=== PATIENT | male | born 1950 | race Caucasian/White ===

== ENCOUNTER 2017-12-23 08:52 | Day surgery (SDC) | payer OTHER ==
[2017-11-07 10:14] VITALS: BMI 27.2
[~2017-12-23 08:52] MED LIST: LACTATED RINGERS 1,000 ML IV SCH
[2017-12-23 09:13] VITALS: TEMP 97.3
[2017-12-23] MEDS: CYCLOPENTOLATE 1% OPHTH SOLN 2 ML BTL OP ONE ×3 (09:15→09:34)
[2017-12-23] MEDS: FLURBIPROFEN 0.03% OPHTH DROPS 2.5 ML BTL OP ONE ×3 (09:18→09:37)
[2017-12-23] MEDS: PHENYLEPHRINE 10% OPHTH DROPS 5 ML BTL OP ONE ×3 (09:21→09:40)
[2017-12-23] MEDS ORDERED: PROPOFOL 10 MG/ML 20 ML VIAL IV ONE (09:54)
[2017-12-23] MEDS ORDERED: BALANCED SALT IRRIG SOLN COMB2 15 ML IRRIG.SOLN IRRIGATION ONE (10:04)
[2017-12-23] MEDS ORDERED: HYALURONATE SODIUM INTRAOCULAR 1 EACH SYRINGE (10MG/ML) INTRAOCULA ONE (10:05)
[2017-12-23] MEDS ORDERED: EPINEPHrine (PF) 0.5 ML in BALANCED SALT IRRIG SOLN COMB2 500 ML IRRIGATION ONE (10:06)
--- NOTE | 2017-12-23 10:15 | P.OP ---
Date of Procedure: 12/23/17 Procedure(s) Performed: PREOPERATIVE DIAGNOSIS: Cataract, left eye. POSTOPERATIVE DIAGNOSIS: Cataract, left eye. OPERATION: Phacoemulsification cataract, left eye. DESCRIPTION OF PROCEDURE: The patient was taken to the preoperative holding area. Intravenous Propofol was given so as to bring about adequate sedation. The following mixture was given for local anesthesia: 5 mL of 2% lidocaine, 5 mL of 0.75% Marcaine, and 1 mL of Wydase. Approximately 4 mL was injected in the retrobulbar space of the surgical eye. Additional 1 mL was then directed to the temporal area of the surgical eye. This was performed to allow adequate neurological block of the facial muscles. The patient was revived and then taken into the operative room. The patient was prepped and draped in the usual sterile manner for the operative eye. A lid speculum was put into position. The conjunctiva was resected back from the limbus in the 12 o'clock position. Bleeding was controlled with electrocautery. A #69 blade was then used and a half-thickness scleral incision approximately 1-mm posterior to the limbus was made on bare sclera. This was shelved in the clear cornea using a crescent knife. Next a 15-degree blade was used to make a stab incision at the 3 o' clock position at the corneolimbal interface. Keratome blade was then used and the superior wound was extended into the anterior chamber. Viscoelastic was injected into the anterior chamber and to maintain its form. Next, a cystotome was used and a continuous anterior capsulotomy was made without difficulty. Hydrodissection using a blunt cannula and BSS was performed. Phaco probe was then employed and a groove extending from 12 to 6 o'clock in the lens was created. A Anoop wand was used through the stab incision so as to perform a divide and conquer technique. Next an irrigation aspiration probe was utilized and any residual cortex was removed from the eye. Again, viscoelastic was injected into the anterior chamber. An Dada posterior chamber lens implant was placed in the cartridge and injected into the anterior chamber without difficulty. The SinFuturefleetey hook was utilized to spin the lens into position and this was again performed without any difficulty. The irrigation and aspiration probe was again employed and any residual viscoelastic was removed from the eye. Then BSS was injected into the limbal stab incision and the anterior chamber re-inflated. The conjunctiva was reapproximated using electrocautery. One drop of 0.25% Timoptic was placed over the corneal along with TobraDex ophthalmic ointment. Two sterile patches and a Brody eye shield were taped into position. The patient was transported to the recovery room in stable condition. Pathology: none sent Condition: stable Disposition: same day
[2017-12-23 10:24] VITALS: PULSE 54
[2017-12-23 10:40] VITALS: BP 152/83; RESP 18
[2017-12-23] MEDS ORDERED: BUPIVACAINE (PF) 0.75% 5 ML, HYALURONIDASE, HUMAN RECOMB 150 UNIT, LIDOCAINE 2% (PF) 10... MISCELLANE ONE ×3 (23:00)
[2017-12-23] MEDS ORDERED: GENTAMICIN/PREDNISOL AC OPHTH OINT 3.5GM OPHTHALMIC ONE (23:00)
[2017-12-23] MEDS ORDERED: TIMOLOL 0.5% OPHTH DROPS 5 ML BTL OP ONE (23:00)
== END 2017-12-23 10:47 | disposition home or self-care (01) ==
LOC: OR 08:52
PROVIDERS: ATTEND Ophthalmology
DX: H26.9 Unspecified cataract (principal); H40.059 Ocular hypertension, unspecified eye; I25.10 Atherosclerotic heart disease of native coronary artery without angina pectoris; I11.9 Hypertensive heart disease without heart failure; Z87.891 Personal history of nicotine dependence; Z95.1 Presence of aortocoronary bypass graft; Z95.5 Presence of coronary angioplasty implant and graft; Z79.02 Long term (current) use of antithrombotics/antiplatelets; Z79.82 Long term (current) use of aspirin; Z79.899 Other long term (current) drug therapy
CPT/HCPCS: 66984; V2632; J3470; J2001; J0171; J2704

== ENCOUNTER → 2018-02-17 | Outpatient (CLI) | payer OTHER ==
--- NOTE | 2018-02-17 09:25 | MR ---
EXAMINATION TYPE: MR knee LT wo con DATE OF EXAM: 02/17/2018 COMPARISON: NONE HISTORY: Left knee pain TECHNIQUE: Multiplanar, multisequence imaging of the left knee is performed without IV contrast. FINDINGS: There is a rounded area of abnormal signal involving the anterior lateral femur extending t o the articular surface measuring approximately 1.6 cm which may represent an area of contusion. Oste ochondritis in the differential diagnosis. Linear signal posterior horn the medial meniscus are suggestive of a tear. There is a complex tear involving the posterior horn of the medial meniscus. There is a 1.2 x 2.2 x 4 .5 cm popliteal fossa cyst. There is a focal 3 mm defect involving the articular surface cartilage of the femur medially compatib le with a localized area of grade III chondromalacia. Quadriceps and patellar tendons are intact. Small amount of fluids patellar bursa. Patellar cartilage maintained. Retinaculum intact. Medial collateral and lateral collateral ligaments are intact. Increased fluid surrounding the MCL is compatible with a grade 1 sprain. Anterior cruciate and posterior cruciate ligaments intact. IMPRESSION: 1. Complex tear posterior horn medial meniscus. 2. Simple linear tear posterior horn and body lateral meniscus. 3. Large area of abnormal signal involving the lateral anterior femur extending to the articular surf ananya may been the basis of contusion or osteochondritis correlate clinically. 4. Popliteal fossa cyst. 5. chondromalacia medial femoral articular surface grade 3. 6. MCL grade 1 sprain.
== END | disposition home or self-care (01) ==
LOC: RADMRIMAIN 08:40
PROVIDERS: ATTEND Orthopaedic Surgery
DX: S83.412A Sprain of medial collateral ligament of left knee, initial encounter (principal); S83.232A Complex tear of medial meniscus, current injury, left knee, initial encounter; S83.282A Other tear of lateral meniscus, current injury, left knee, initial encounter; M71.22 Synovial cyst of popliteal space [Baker], left knee; M94.262 Chondromalacia, left knee

== ENCOUNTER 2018-02-23 11:40 | Day surgery (SDC) | payer OTHER ==
[2018-02-17 15:53] VITALS: BMI 27.2
[~2018-02-23 11:40] MED LIST changes: +DEXAMETHASONE SOD PHOSPHATE 10 MG/ML 1 ML VIAL IV ONE; +MIDAZOLAM 2 MG/2 ML VIAL IV PRN; +MORPHINE SULFATE 4 MG/ML SYRINGE IV PRN; +ONDANSETRON 4 MG/2 ML VIAL IVP ONE
[2018-02-23] MEDS ORDERED: LIDOCAINE 1% 20 ML VIAL (10MG/ML) FOR IV START INTRADERMA ONE (12:10)
[2018-02-23 12:13] VITALS: TEMP 98.9
[2018-02-23] MEDS ORDERED: MIDAZOLAM 2 MG/2 ML VIAL ONE (12:50)
[2018-02-23] MEDS ORDERED: fentaNYL (PF) 50 MCG/ML 2 ML AMP ONE (12:50)
[2018-02-23] MEDS ORDERED: LIDOCAINE 1% INJ 10MG/ML (20 ML MDV) ONE (12:50)
[2018-02-23] MEDS ORDERED: PROPOFOL 10 MG/ML 20 ML VIAL IV ONE (12:50)
[2018-02-23] MEDS ORDERED: BUPIVACAINE (PF) 0.5% 30 ML VIAL SQ ONE ×2 (12:59)
[2018-02-23] MEDS ORDERED: LIDOCAINE 2% INJ 20 MG/ML SQ ONE ×2 (12:59)
[2018-02-23 13:31] VITALS: RESP 18
[2018-02-23 13:45] VITALS: BP 155/79; PULSE 72
--- NOTE | 2018-02-23 16:43 | OP ---
OPERATIVE REPORT DATE OF SURGERY: 02/23/2018 PREOPERATIVE DIAGNOSIS: 1. Right middle trigger finger. 2. Right index trigger finger. FINAL DIAGNOSES: 1. Right middle trigger finger. 2. Right index trigger finger. PROCEDURE: 1. Trigger finger release, right middle finger. 2. Trigger finger release, right index finger. PROCEDURE DESCRIPTION: The following procedure was done identically for each of the right index and middle fingers through separate incisions. A transverse incision was made in the proximal skin crease of the middle finger. Blunt dissection was taken through the subcutaneous tissue to identify the neurovascular bundles. They were kept in view and gently retracted out of harm?s way while a longitudinal release of the A1 angella was performed. The flexor pollicis longus was examined and slight swelling was noted but the tendon was intact. The tendon was gently retracted from the wound to ensure no adhesion. The wound was then thoroughly irrigated, tourniquet released. Hemostasis was acquired and the skin was closed with 5-0 nylon suture. Soft bulky dressing applied. The patient was taken to the recovery room in satisfactory condition. MMODL / IJN: [id number] /
--- NOTE | 2018-03-15 22:19 | OP ---
OPERATIVE REPORT ADDENDUM: PROCEDURE DATE: 02/23/2018 This was already transcribed but there was an inaccuracy and the report needs to be redone. OPERATIVE REPORT: Identified as [id number]. DATE OF SURGERY: 02/23/2018. PREOPERATIVE DIAGNOSES: 1. Right index trigger finger. 2. Right ring trigger finger. FINAL DIAGNOSES: 1. Right index trigger finger. 2. Right ring trigger finger. PROCEDURE PERFORMED: 1. Trigger finger release, right index finger. 2. Trigger finger release, right ring finger. INDICATIONS: A 67-year-old male correctly identified both his index and ring fingers in the preop holding area as the triggering fingers. There was some inaccuracy with the history and physical, which indicated index and middle. This was corrected on the operative consent in the preop holding area and was initialed by myself, the patient and a witness. PROCEDURE DESCRIPTION: The following procedure was done identically for both the right index and ring fingers through separate incisions. A transverse incision was made in the proximal skin crease of the involved finger. Blunt dissection was taken through the subcutaneous tissue to identify the neurovascular bundles. They were kept in view and gently retracted out of harm's way while a longitudinal release of the A1 angella was performed under 4.5 loupe magnification. The flexor tendon was retracted from the wound and examined and some slight swelling and superficial fraying of the tendon was noted. This was clearly the cause of the triggering. The slight amount of fraying did not weaken the tendon significantly and no postoperative restrictions for active motion use should be necessary. The tourniquet was then released. Hemostasis satisfactory. The wound was thoroughly irrigated. The wound was closed with 5-0 nylon suture. Soft bulky dressing was applied. The patient was taken to recovery in satisfactory condition. MMODL / IJN: [id number] /
== END 2018-02-23 14:21 | disposition home or self-care (01) ==
LOC: OR 11:40
PROVIDERS: ATTEND Orthopaedic Surgery Hand Surgery
DX: M65.331 Trigger finger, right middle finger (principal); M65.321 Trigger finger, right index finger; I25.10 Atherosclerotic heart disease of native coronary artery without angina pectoris; I11.9 Hypertensive heart disease without heart failure; Z87.891 Personal history of nicotine dependence; E78.5 Hyperlipidemia, unspecified; I25.2 Old myocardial infarction; K21.9 Gastro-esophageal reflux disease without esophagitis; H91.90 Unspecified hearing loss, unspecified ear; Z85.46 Personal history of malignant neoplasm of prostate; Z95.1 Presence of aortocoronary bypass graft; Z95.5 Presence of coronary angioplasty implant and graft; Z79.02 Long term (current) use of antithrombotics/antiplatelets; Z79.82 Long term (current) use of aspirin; Z79.899 Other long term (current) drug therapy
CPT/HCPCS: 26055 ×2; J2001 ×2; J2250; J1100; J2405; J3010; J2704; 93005

== ENCOUNTER → 2021-07-19 | Outpatient (CLI) | payer OTHER | END | disposition home or self-care (01) | LOC: LABWHC1 13:21 | PROVIDERS: ATTEND Internal Medicine | DX: Z20.822 Contact with and (suspected) exposure to COVID-19 (principal) | CPT/HCPCS: U0003; C9803; U0005 ==

== ENCOUNTER 2021-10-13 15:41 | Emergency (ER) | payer MEDICARE, OTHER ==
[2021-10-13 16:10] VITALS: RESP 20
[2021-10-13] MEDS ORDERED: MORPHINE SULFATE 4 MG/ML SYRINGE IM STA (16:46)
[2021-10-13] MEDS ORDERED: CEPHALEXIN 500 MG CAP PO STA (16:46)
--- NOTE | 2021-10-13 17:33 | XR ---
EXAMINATION TYPE: XR finger RT DATE OF EXAM: 10/13/2021 COMPARISON: NONE HISTORY: Laceration. Trauma TECHNIQUE: 3 views FINDINGS: There is soft tissue deformity consistent with laceration at the tip of the left thumb. I s ee no fracture nor dislocation. There is no evidence of a foreign body. There is spurring at the IP j oint of the thumb. IMPRESSION: Laceration deformity.
[2021-10-13] MEDS ORDERED: DIPH,PERTUS(ACELL)TETVAC-LF 0.5 ML VIAL IM ONE (18:03)
--- NOTE | 2021-10-13 18:09 | ED ---
Wound/Laceration HPI - General Chief Complaint: Wound/Laceration Stated Complaint: hand injury Time Seen by Provider: 10/13/21 16:37 Source: patient, RN notes reviewed Mode of arrival: ambulatory Limitations: no limitations - History of Present Illness Initial Comments: Patient is a 71-year-old male that presents to the emergency department complaining of a right thumb laceration. He notes that he was using a saw when he cut hit the tip of his right thumb. He notes the bleeding is controlled prior to arrival. He was otherwise well-appearing in no apparent distress. She denied any other issues or complaints. He denied chest pain shortness of breath headache nausea vomiting diarrhea constipation fever fatigue chills. - Related Data Home Medications Medication Instructions Recorded Confirmed Aspirin 81 mg PO DAILY 11/14/15 02/23/18 Atorvastatin [Lipitor] 80 mg PO HS 11/14/15 02/17/18 Clopidogrel Bisulfate [Plavix] 75 mg PO HS 11/14/15 02/23/18 Omeprazole [PriLOSEC] 20 mg PO AC-BRKFST 11/14/15 02/23/18 atenoloL 25 mg PO HS 11/14/15 02/23/18 Ranolazine [Ranexa] 500 mg PO BID 11/15/15 02/17/18 Tamsulosin HCl [Flomax] 0.4 tab PO DAILY 11/07/17 02/23/18 Cholecalciferol [Vitamin D3] 5,000 unit PO DAILY 02/17/18 02/23/18 Flexeril (Unknown Dose) 1 tab PO TID PRN 02/17/18 Glucosam/Kvng-Msm1/C/Brooks/Bosw 1 each PO DAILY 02/17/18 02/23/18 [Glucosamine-Chondroitin Tablet] Previous Rx's Medication Instructions Recorded Cephalexin [Keflex] 500 mg PO Q6HR #40 cap 10/13/21 HYDROcodone/APAP 7.5-325MG [[place] 1 tab PO Q6HR PRN 3 Days #12 tab 10/13/21 7.5-325] Allergies Allergy/AdvReac Type Severity Reaction Status Date / Time No Known Allergies Allergy Verified 10/13/21 16:10 Review of Systems ROS Statement: Those systems with pertinent positive or pertinent negative responses have been documented in the HPI. ROS Other: All systems not noted in ROS Statement are negative. Past Medical History Past Medical History: Coronary Artery Disease (CAD), Cancer, Eye Disorder, Hearing Disorder / Deafness, Hyperlipidemia, Hypertension, Myocardial Infarction (MA), Osteoarthritis (OA) Additional Past Medical History / Comment(s): LT EYE CATARACT, Prostate Cancer with radiation/implants dx 08/09 Last Myocardial Infarction Date:: UNKNOWN- PER EKG-2000 History of Any Multi-Drug Resistant Organisms: None Reported Past Surgical History: Coronary Bypass/CABG, Heart Catheterization With Stent, Orthopedic Surgery Additional Past Surgical History / Comment(s): RIGHT KNEE SURGERY,. LT TRIGGER FINGER. COLONOSCOPY Past Anesthesia/Blood Transfusion Reactions: No Reported Reaction Date of Last Stent Placement:: 1999 Past Psychological History: No Psychological Hx Reported Past Alcohol Use History: Occasional Past Drug Use History: None Reported - Past Family History Father Family Medical History: Cancer Additional Family Medical History / Comment(s): TESTICULAR CANCER General Exam Limitations: no limitations General appearance: alert, in no apparent distress Head exam: Present: atraumatic, normocephalic, normal inspection Eye exam: Present: normal appearance, PERRL, EOMI. Absent: scleral icterus, conjunctival injection, periorbital swelling ENT exam: Present: normal exam, mucous membranes moist Neck exam: Present: normal inspection Respiratory exam: Present: normal lung sounds bilaterally. Absent: respiratory distress, wheezes, rales, rhonchi, stridor Cardiovascular Exam: Present: regular rate, normal rhythm, normal heart sounds. Absent: systolic murmur, diastolic murmur, rubs, gallop, clicks Extremities exam: Present: normal inspection, full ROM, normal capillary refill. Absent: tenderness, pedal edema, joint swelling, calf tenderness Neurological exam: Present: alert, oriented X3 Psychiatric exam: Present: normal affect, normal mood Skin exam: Present: warm, dry, intact, normal color. Absent: rash Expanded Type of lesion: Present: laceration (Patient cut off pad of right thumb. Nonbleeding.) Course Vital Signs 10/13/21 16:08 Temperature 98.5 F Pulse Rate 77 Respiratory 20 Rate Blood Pressure 215/88 O2 Sat by Pulse 96 Oximetry Medical Decision Making - Medical Decision Making 71-year-old male that cut off pad of right thumb. X-ray of the right thumb, tetanus vaccine updated. X-ray shows laceration deformity no bone involvement. 500 mg of Keflex ordered. Pain medication and antibiotics sent to pharmacy. Case discussed with Dr. Johnson, patient discharge home with follow-up to primary care and orthopedic hand specialist. - Radiology Data Radiology results: report reviewed, image reviewed X-ray right thumb: Laceration deformity. Disposition Clinical Impression: Laceration Disposition: HOME SELF-CARE Condition: Stable Instructions (If sedation given, give patient instructions): Laceration (ED) Additional Instructions: Please return to the Emergency Department if symptoms worsen or any other concerns. Follow-up with primary care 1-2 days. Follow-up with hand specialist as soon as possible. Take pain medication antibiotics as prescribed. Is patient prescribed a controlled substance at d/c from ED?: Yes When asked, does pt state using other controlled substances?: No If prescribed controlled substance>3 days was MAPS reviewed?: Prescribed <3 Days If opioid is for acute pain is fill amount 7 days or less?: Yes Referrals: Domitila Aguilar DO [Primary Care Provider] - 1-2 days Ginger Khan DO [Doctor of Osteopathic Medicine] - 1-2 days Time of Disposition: 18:08
[2021-10-13] MEDS ORDERED: HYDROcodone/APAP 5-325MG 1 EACH TAB PO STA (18:24)
[2021-10-13 18:45] VITALS: BP 162/84; PULSE 79; TEMP 98.2
== END 2021-10-13 18:45 | disposition home or self-care (01) ==
LOC: EC 15:41
DX: S61.011A Laceration without foreign body of right thumb without damage to nail, initial encounter (principal); I25.10 Atherosclerotic heart disease of native coronary artery without angina pectoris; I10 Essential (primary) hypertension; E78.5 Hyperlipidemia, unspecified; I25.2 Old myocardial infarction; Z79.82 Long term (current) use of aspirin; Z79.899 Other long term (current) drug therapy; Z79.01 Long term (current) use of anticoagulants; Z23 Encounter for immunization; W27.0XXA Contact with workbench tool, initial encounter
CPT/HCPCS: 73140; 90715; 99283; 96372; 90471; J2270